=== PATIENT | male | born 1975 | race Caucasian/White ===

== ENCOUNTER 2017-10-30 19:37 | Emergency (ER) ==
[2017-10-30 19:40] VITALS: BP 178/99; TEMP 98.2; BMI 44.7
--- NOTE | 2017-10-30 20:26 | CT ---
EXAM: CT lumbar spine without intravenous contrast 10/30/2017. Sagittal and coronal reformatted michelle ges obtained HISTORY: Fall COMPARISON: 07/26/2014 FINDINGS: There is approximately 10 mm anterolisthesis of L5 on S1. Bilateral L5 pars defects. Vac uum disc formation at L5-S1. The remaining vertebral bodies of the lumbar spine appear intact. The remaining levels align normall y. There is no evidence of acute fracture or subluxation. IMPRESSION: 1. No acute post traumatic osseous abnormality of the lumbar spine. 2. 10 mm anterolisthesis of L5 on S1 secondary to chronic bilateral L5 pars defects.
--- NOTE | 2017-10-30 20:29 | CT ---
EXAM: CT pelvis without intravenous contrast 10/30/2017. Sagittal and coronal reformatted images ob tained HISTORY: Fall COMPARISON: 07/26/2014 FINDINGS: No acute inflammatory or post traumatic process identified within the soft tissues of the pelvis. Chronic bilateral L5 pars defects have been described on same day lumbar spine CT. The sacrum shows no acute fracture. 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 Anterior bony fusion at the right sacroiliac joint. The bony pelvis appears intact without evidence of fracture. The right and left hip align normally. The hips appear intact. No acute process of the proximal rig ht or left femur. 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 IMPRESSION: Chronic findings as above. There is no acute post traumatic process of the pelvis.
--- NOTE | 2017-10-30 20:35 | ED.PDOC ---
General ED Provider: Dr. BRENDA BILL-ER Chief Complaint: Back Pain Stated Complaint: i fell and hurt my back Time Seen by Physician: 20:33 Mode of Arrival: Walk-In Information Source: Patient Exam Limitations: No limitations Nursing and Triage Documentation Reviewed and Agree: Yes Reviewed sepsis parameters & appropriate labs ordered?: Yes System Inflammatory Response Syndrome: Not Applicable Sepsis Protocol: For patient's 13 years and over: Temp is 96.8 and below OR 101 and greater Pulse >90 BPM Resp >20/minute Acutely Altered Mental Status Are patient's symptoms suggestive of a new infection, such as: -Pneumonia -Skin, Soft Tissue -Endocarditis -UTI -Bone, Joint Infection -Implantable Device -Acute Abdominal Infection -Wound Infection -Meningitis -Blood Stream Catheter Infection -Unknown Musculoskeletal Complaint Exam - Back Pain Complaint/Exam Mechanism of Injury: Reports: Trauma Onset/Duration: one hour Symptoms Are: Still present Timing: Constant Initial Severity: Mild Current Severity: Moderate Location: Reports: Discrete Character: Reports: Dull, Spasmodic, Stiffness Aggravating: Reports: Movements, Lifting, Bending, Walking Alleviating: Reports: Rest Associated Signs and Symptoms: Denies: Swelling, Redness, Bruising, Fever, Weakness, Numbness, Tingling, Abdominal pain, Flank pain, Bladder incontinence, Bowel incontinence, Weight loss, Pain with weight bearing TAD Risk Factors: Reports: None AAA Risk Factors: Reports: None Cauda Equina Risk Factors: Reports: None Epidural Abcess Risk Factors: Reports: None Related Surgical History: Reports: None Focal Tenderness: Yes Paraspinal Muscle Tenderness: Yes Paraspinal Muscle Spasm: No Scoliosis: No Lordosis: No Kyphosis: No SLR Test: Right Negative, Left Negative Hip Motion Testing Pain: Left Negative Focal Weakness: Present: None, RLE Focal Sensory Loss: Present: None Gait: Present: Abnormal Differential Diagnoses: Fracture, Herniated Disk Review of Systems - Review Of Systems Constitutional: Reports: No symptoms Eyes: Reports: No symptoms Ears, Nose, Mouth, Throat: Reports: No symptoms Respiratory: Reports: No symptoms Cardiac: Reports: No symptoms GI: Reports: No symptoms : Reports: No symptoms Musculoskeletal: Reports: Back pain, Muscle pain Skin: Reports: No symptoms Neurological: Reports: No symptoms Endocrine: Reports: No symptoms Hematologic/Lymphatic: Reports: No symptoms All Other Systems: Reviewed and Negative Past Medical History - Past Medical History Previously Healthy: Yes Endocrine: Reports: Unknown Cardiovascular: Reports: Unknown Respiratory: Reports: Unknown Hematological: Reports: Unknown Gastrointestinal: Reports: Unknown Genitourinary: Reports: Unknown Neuro/Psych: Reports: Unknown Musculoskeletal: Reports: Unknown Cancer: Reports: Unknown - Surgical History General Surgical History: Reports: Unknown - Family History Family History: Reports: Unknown - Social History Smoking Status: Never smoker Hx Substance Use: No Alcohol Screening: Occasionally - Immunizations Tetanus Shot up to Date: Yes Physical Exam - Physical Exam Appearance: Well-appearing, No pain distress, Well-nourished Pain Distress: Mild Eyes: ALON, EOMI, Conjunctiva clear ENT: Ears normal, Nose normal, Oropharynx normal Neck: Supple Respiratory: Airway patent, Breath sounds clear, Breath sounds equal, Respirations nonlabored Cardiovascular: RRR, Pulses normal, No rub, No murmur GI/: Soft, Nontender, No masses, Bowel sounds normal, No Organomegaly Musculoskeletal: Limited ROM Skin: Warm, Dry, Normal color Neurological: Sensation intact, Motor intact, Reflexes intact, Cranial nerves intact, Alert, Oriented Psychiatric: Affect appropriate, Mood appropriate Interpretation - Radiology Interpretation Radiology Interpretation By: Radiologist Radiology Results: Negative Exam Interpreted: CT Scan Critical Care Note - Critical Care Note Total Time (mins): 0 Course - Course Orders, Labs, Meds: Orders Category Date Time Status CT LUMBAR SPINE W/O CONTRAST Stat RADS 10/30/17 19:[address] PELVIS W/O CONTRAST Stat RADS 10/30/17 19:39 Completed Vital Signs: Temp Pulse Resp BP Pulse Ox 10/30/17 19:38 98.2 F 76 20 178/99 H 97 Departure - Departure Time of Disposition: 20:35 Disposition: HOME SELF-CARE Discharge Problem: Low back pain Qualifiers: Chronicity: acute Back pain laterality: unspecified Sciatica presence: without sciatica Qualified Code(s): M54.5 - Low back pain Instructions: Low Back Strain (ED) Condition: Good Pt referred to PMD for follow-up: Yes IPMP verified?: No Additional Instructions: medrol dose pack--flexeril 10mg tid #21--norco 7.5mg q 4hrs prn pain #12--f/u with pcp Allergies/Adverse Reactions: Allergies No Known Allergies Allergy (Unverified 10/30/17 19:40) Home Medications: Ambulatory Orders Lisinopril/Hydrochlorothiazide [Lisinopril-Hctz 20-25 mg Tab] 1 tab PO DAILY 02/09 Disposition Discussed With: Patient, Family
== END 2017-10-30 20:50 | disposition home or self-care (01) ==
LOC: ED 19:37
DX: M54.5 Low back pain (principal); W19.XXXA Unspecified fall, initial encounter
CPT/HCPCS: 99283